=== PATIENT | female | born 1960 | race Caucasian/White ===

== ENCOUNTER 2016-10-28 07:00 | Day surgery (SDC) | payer OTHER ==
[~2016-10-28] VITALS: Ht 157.5 cm; Wt 112.4 kg
[2016-10-28] VITALS (28 sets, daily range): BP systolic 96–121; BP diastolic 56–76; PULSE 66–76; RESP 14–30; Ht 157.5 cm; Wt 112.4 kg
[2016-10-28] MEDS ORDERED: FAMOTIDINE 20 MG TAB PO ONE (08:00)
[2016-10-28] MEDS ORDERED: DIPHENHYDRAMINE 50 MG CAP PO ONE (08:00)
[2016-10-28] MEDS ORDERED: SOD CHLORIDE 0.45% 1,000 ML IV SCH (08:00)
[2016-10-28] MEDS ORDERED: DIAZEPAM 5 MG TAB PO ONE (08:00)
[2016-10-28 08:10] LABS: ADD SCAN DIFF NO
[2016-10-28 08:15] LABS: BASOPHILS % 0.4 % (0.0-2.0); EOSINOPHILS # 0.3 10^3/ul (0.0-0.5); EOSINOPHILS % 2.5 % (0.0-7.0); HEMATOCRIT 40.1 % (37.0-47.0); HEMOGLOBIN 12.5 g/dl (12.0-16.0); LYMPHOCYTES # 3.6 10^3/ul (0.8-2.9); LYMPHOCYTES % 35.8 % (15.0-51.0); MEAN CORPUSCULAR HEMOGLOBIN 26.7 pg (29.0-33.0); MEAN CORPUSCULAR HGB CONC 31.2 g/dl (32.0-37.0); MEAN CORPUSCULAR VOLUME 85.5 fl (82.0-101.0); MEAN PLATELET VOLUME 9.9 fl (7.4-10.4); MONOCYTE # 0.7 10^3/ul (0.3-0.9); MONOCYTES % 7.2 % (0.0-11.0); NEUTROPHIL # 5.4 10^3/ul (1.6-7.5); NEUTROPHILS % 53.7 % (39.0-77.0); PLATELET COUNT 282 10^3/UL (140-415); RED BLOOD COUNT 4.69 10^6/ul (4.20-5.40)
[2016-10-28] MEDS ORDERED: ATOR20TA38 PO (08:25)
[2016-10-28] MEDS ORDERED: ASPI-664 PO (08:25)
[2016-10-28] MEDS ORDERED: ISOS60TA PO ×2 (08:26→08:28)
[2016-10-28] MEDS ORDERED: FURO20TA3 PO (08:26)
[2016-10-28] MEDS ORDERED: NAPR-688 PO (08:26)
[2016-10-28] MEDS ORDERED: POTA8CAP PO (08:28)
--- NOTE | 2016-10-28 08:39 | RADRPT ---
PROCEDURE: XR Chest. CLINICAL INDICATION: Preoperative TECHNIQUE: Single frontal view of the chest was obtained COMPARISON: None FINDINGS: The heart and mediastinum are within normal limits. The lungs are clear. There is no pleural effusion or pneumothorax. RPTAT: AA IMPRESSION: No acute disease. .Matias Leon MD, Date Time Electronically viewed and signed by .Matias Leon MD, on 10/28/2016 08:39 .S/
[2016-10-28 08:42] LABS: INR 0.91; PROTIME 12.3 Sec (12.2-14.2)
[2016-10-28 08:43] LABS: PARTIAL THROMBOPLASTIN TIME 34.9 Sec (25.0-35.0)
[2016-10-28 08:49] LABS: CHOL/HDL RATIO 3.7 RATIO
[2016-10-28 08:50] LABS: CALCIUM 9.8 mg/dl (8.4-10.2); CREATININE 0.64 mg/dl (0.44-1.00); POTASSIUM 4.5 mmol/L (3.5-5.1)
[2016-10-28] MEDS ORDERED: VERAPAMIL 5 MG INJ ONE (10:59)
[2016-10-28] MEDS ORDERED: LIDOCAINE 1% (MDV) 20 ML INJ ONE (10:59)
[2016-10-28] MEDS ORDERED: IODIXANOL LOCM 100 ML BTL ONE (10:59)
[2016-10-28] MEDS ORDERED: HEPARIN 1000 UNITS/ML 10 ML INJ ONE (10:59)
[2016-10-28] MEDS ORDERED: HEPARIN 1000 UNITS/NS (A-LINE) 2,000 ML ONE (10:59)
[2016-10-28] MEDS ORDERED: NITROGLYCERIN (IC) 100 MCG/ML INJ ONE (10:59)
[2016-10-28] MEDS ORDERED: MIDAZOLAM 1 MG/ML 2 ML INJ ONE (11:00)
[2016-10-28] MEDS ORDERED: FENTAnyl 50 MCG/ML VIAL ONE (11:00)
[2016-10-28] MEDS ORDERED: SOD CHLORIDE 0.9% 1,000 ML IV SCH (12:02)
--- NOTE | 2016-10-28 12:20 | CARRPT ---
DATE OF PROCEDURE: 10/28/2016 TYPE OF PROCEDURE: 1. Left heart catheterization. 2. Coronary angiography. 3. Measurement of left ventricular end diastolic pressure. ATTENDING PHYSICIAN: Garrick Abel MD REFERRING PHYSICIAN: Self-referred. INDICATION: Chest pain with positive stress test findings for ischemia. TYPE OF ANESTHESIA: Conscious and local. BRIEF HISTORY AND HOSPITAL COURSE: Ms. Jain is a 56-year-old female with history of hypertension and dyslipidemia who initially presented with complaints of substernal chest pain and shortness of breath. The patient subsequently had a cardiac stress test revealing positive anterior ischemia. T he patient was placed on ____ medical therapy, continued to have chest pain and therefore brought to the cardiac [facility] to assess for the possibility of significant obstructive coronary artery disea se with subsequent chest pain and subsequent positive stress test findings. DESCRIPTION OF PROCEDURE: After informed consent was obtained, the patient was brought the [facility] cardiac catheterization lab where her right radial area was prepped and draped in the usual sterile fashion. Lidocaine 2% was infiltrated in the right radial area and order to ac hieve adequate local anesthesia. With modified Seldinger technique, the radial artery was cannulate d and a 6-[place]ai[place]ese arterial sheath was placed. A 6-[place]ese JL3 catheter was used to cannulate the left main coronary ostium. With contrast injection, multiple views of the left coronary arterial system were obtained. A JL3 was removed over a guidewire and a JR4 was used to cannulate the right coronar y arterial ostium. With contrast injection, multiple views of the right coronary arterial system we re obtained. JR4 was removed over a guidewire and it had already been used to cross the LV and adam urement of left ventricular end-diastolic pressure pullback across the aortic valve to assess for si gnificant gradient, which there was not. Subsequently, this catheter was removed. This completed t he procedure. There were no noted complications. FINDINGS: CORONARY ANGIOGRAPHY: Left main long 5 mm, no significant stenoses. Circumflex proximally is a 3.5 mm vessel and very quickly decreases in caliber to the circ continuation AV groove and a high branc lori obtuse marginal, each approximately 2 mm with no significant focal stenoses. The LAD proximall y is a 3.5 mm vessel and has mild luminal irregularities of 20% in the mid portion proximal branchin g diagonal 2.5 mm with no significant focal stenoses. The right coronary artery proximally is a 3.5 mm vessel and has an ostial 20% stenosis. Remainder of the right coronary artery is free of signif icant focal stenoses, it is a dominant vessel and therefore gives off a 3 mm PDA with no significant focal stenoses and a 2.5 mm posterolateral branch with no significant focal stenoses. Measurement of left ventricular end diastolic pressure of 18. No significant aortic stenosis by gra dient. TOTAL FLUOROSCOPY TIME: 6.6 minutes. TOTAL CONTRAST: 50 mL. IMPRESSION: 1. Very mild nonobstructive coronary artery disease. 2. High normal left heart filling pressures. 3. No significant aortic stenosis by gradient. RECOMMENDATIONS: 1. In light of procedure and findings at this time, would maximize medical management. 2. Aggressive risk factor reduction. 3. Patient will be admitted to the same day surgery center for post-catheterization and continued m anagement of presenting symptoms with probable discharge later this afternoon. Dictated By: GARRICK CARBAJAL/ERIC Conf#: [id number] DID#: [id number]
[2016-10-28] MEDS ORDERED: ACETAMINOPHEN 325 MG TAB PO PRN (12:30)
[2016-10-28] MEDS ORDERED: morphine 2 MG INJ IV PRN (12:30)
[2016-10-28] MEDS ORDERED: AL HYDROX/MG HYDROX/SIMETH 30 ML CUP PO PRN (12:30)
[2016-10-28] MEDS ORDERED: ONDANSETRON 4 MG INJ IV PRN (12:30)
--- NOTE | 2016-10-28 15:48 | RADRPT ---
Vent Rate: 68 bpm RR Interval: [address] Interval: 150 msec QRS Duration: 84 msec QT Interval: 430 msec QTC Interval: 457 msec P-R-T [place]: 58 - 43 - 48 degrees Normal sinus rhythm Low voltage QRS Borderline ECG Electronically Signed By: Hakeem Eli [id number]
== END 2016-10-28 16:58 | disposition home or self-care (01) ==
LOC: SDS 07:00
PROVIDERS: ATTEND Internal Medicine
DX: I25.10 Atherosclerotic heart disease of native coronary artery without angina pectoris (principal); I10 Essential (primary) hypertension; E78.5 Hyperlipidemia, unspecified
CPT/HCPCS: 71010; 80048; 80061; 85025; 85610; 85730; 93005; 93458; C1769; C1887; J1644; J2250; J3010; Q9967; Z7610